=== PATIENT | female | born 1940 | race Caucasian/White ===

== ENCOUNTER → 2018-04-08 | Day surgery (SDC) | payer OTHER, MEDICARE ==
[2018-03-23 16:15] VITALS: BMI 23.1
[~2018-04-08] MED LIST: PROPOFOL 20 ML ONE
[2018-04-08 09:01] VITALS: TEMP 97.7
[2018-04-08 11:19] VITALS: BP 130/66; PULSE 56
--- NOTE | 2018-04-14 15:43 | PATH ---
Surgical Pathology Report Patient Name: YAO PANTOJA [facility]. Rec. #: [id number] /Age/Gender: 1940 (Age: 78) / F Account: [id number] Location: [facility] Taken: 04/08/2018 Received: 04/08/2018 Reported: 04/14/2018 Physicians: Zamzam Lacey M.D. Specimen(s) Received A: RANDOM BIOPSY CECUM B: RANDOM BIOPSY RIGHT COLON C: RANDOM BIOPSY TRANSVERSE COLON D: RANDOM BIOPSY DESCENDING COLON E: RANDOM BIOPSY RECTUM Clinical History Chronic diarrhea Postoperative diagnosis: Diverticulosis, hemorrhoids Final Diagnosis A. CECUM, RANDOM, BIOPSY: MICROSCOPIC (LYMPHOCYTIC) COLITIS. (SEE NOTE) B. RIGHT COLON, RANDOM, BIOPSY: MICROSCOPIC (LYMPHOCYTIC) COLITIS. (SEE NOTE) C. TRANSVERSE COLON, RANDOM, BIOPSY: MICROSCOPIC (LYMPHOCYTIC) COLITIS. (SEE NOTE) D. DESCENDING COLON, RANDOM, BIOPSY: MICROSCOPIC (LYMPHOCYTIC) COLITIS. (SEE NOTE) E. RECTUM, RANDOM, BIOPSY: RECTAL/COLONIC MUCOSA SHOWING MILD SURFACE HYPERPLASTIC CHANGE. Note: Biopsies A-D show mild increase in lamina propria infiltrate, comprised predominantly of lymphocytes, plasma cells and few eosinophils with no significant crypt architectural distortion. There is prominent surface and crypt epithelial lymphocytosis highlighted by CD3 immunostains. Focal surface epithelial injury is noted. Trichrome stains demonstrate no evidence of abnormal subepithelial collagen deposition. 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 Correlation with clinical findings is suggested. Electronically Signed Abigail Painter M.D. Gross Description A. Received in formalin, labeled "random biopsy cecum" is a vasquez, irregular portion of soft tissue measuring 0.4 cm. in greatest dimension. The specimen is submitted in toto in one cassette. B. Received in formalin, labeled "random biopsy right colon" is a vasquez, irregular portion of soft tissue measuring 0.5 cm. in greatest dimension. The specimen is submitted in toto in one cassette. C. Received in formalin, labeled "random biopsy transverse" are 3 vasquez, irregular portions of soft tissue ranging from 0.2-0.3 cm. in greatest dimension. The specimens are submitted in toto in one cassette. D. Received in formalin, labeled "random biopsy descending colon" are 2 vasquez, irregular portions of soft tissue measuring 0.1 and 0.4 cm. in greatest dimension. The specimens are submitted in toto in one cassette. E. Received in formalin, labeled "random biopsy rectum" are 2 vasquez, irregular portions of soft tissue measuring 0.2 and 0.6 cm. in greatest dimension. The specimens are submitted in toto in one cassette. 04/09/201804/09/2018
== END | disposition home or self-care (01) ==
LOC: FASU-ENDO 08:35
PROVIDERS: ATTEND Internal Medicine Gastroenterology
PROC: 0DBL8ZX Excision of Transverse Colon, Via Natural or Artificial Opening Endoscopic, Diagnostic (ICD-10-PCS; 2018-04-08)
PROC: 0DBN8ZX Excision of Sigmoid Colon, Via Natural or Artificial Opening Endoscopic, Diagnostic (ICD-10-PCS; 2018-04-08)
PROC: 0DBP8ZX Excision of Rectum, Via Natural or Artificial Opening Endoscopic, Diagnostic (ICD-10-PCS; 2018-04-08)
PROC: 0DBM8ZX Excision of Descending Colon, Via Natural or Artificial Opening Endoscopic, Diagnostic (ICD-10-PCS; 2018-04-08)
PROC: 0DBH8ZX Excision of Cecum, Via Natural or Artificial Opening Endoscopic, Diagnostic (ICD-10-PCS; principal; 2018-04-08 10:00)
DX: K57.30 Diverticulosis of large intestine without perforation or abscess without bleeding (principal); K52.832 Lymphocytic colitis; K64.8 Other hemorrhoids; K64.4 Residual hemorrhoidal skin tags
CPT/HCPCS: 88305-TC; 88313-TC; 88342-TC